=== PATIENT | female | born 1945 | race Caucasian/White ===

== ENCOUNTER 2017-01-07 23:09 | Inpatient (IN) | payer OTHER, MEDICAID ==
[~2017-01-07] VITALS: Ht 165.1 cm; Wt 49.9 kg
[2017-01-07 23:30] VITALS: BP 126/73
[2017-01-07] MEDS ORDERED: Bacitracin Oint UD TOPIC ONE (23:30)
[2017-01-07] MEDS ORDERED: TdaP Vaccine 0.5ml Syr IM ONE (23:30)
[2017-01-07] MEDS ORDERED: ATIVAN0.5 MG ORAL (23:32)
[2017-01-07] MEDS ORDERED: DIOVAN160 MG ORAL (23:32)
[2017-01-07] MEDS ORDERED: EFFEXOR XR75 MG ORAL (23:32)
[2017-01-07] MEDS ORDERED: ATORVASTATIN CA80 MG ORAL (23:32)
[2017-01-07] MEDS ORDERED: MIRTAZAPINE15 MG ORAL (23:32)
[2017-01-08] VITALS (9 sets, daily range): BP systolic 122–181; BP diastolic 51–97
[2017-01-08 00:08] LABS: BASOPHILS % (AUTO) 0.7 % (0.0-2.0); EOSINOPHILS % (AUTO) 2.1 % (0.0-3.0); MEAN CORPUSCULAR HEMOGLOBIN 33.7 PG (27.0-31.0); MEAN CORPUSCULAR HGB CONC 35.5 G/DL (32.0-36.0); MEAN CORPUSCULAR VOLUME 95 FL (80-99); MEAN PLATELET VOLUME 8.5 FL (6.5-10.1); NEUTROPHILS % (AUTO) 50.1 % (45.0-75.0); PLATELET COUNT 190 K/UL (150-450); RED CELL DISTRIBUTION WIDTH 11.5 % (11.6-14.8); WHITE BLOOD COUNT 6.2 K/UL (4.8-10.8)
[2017-01-08 00:24] LABS: ACETAMINOPHEN 23 ug/mL (10-30); ALANINE AMINOTRANSFERASE 27 U/L (3-33); ALBUMIN/GLOBULIN RATIO 2.1 (1.0-2.7); ALCOHOL 12 mg/dL; ANION GAP 19 (5-15); ASPARTATE AMINO TRANSFERASE 30 U/L (5-40); CALCIUM 8.9 mg/dL (8.6-10.2); CARBON DIOXIDE 21 mEQ/L (20-30); CHLORIDE 106 mEQ/L (98-107); CREATININE 0.8 mg/dL (0.5-0.9); HEMOLYSIS 2; POTASSIUM 3.9 mEQ/L (3.4-4.9); SODIUM 146 mEQ/L (135-145); TOTAL PROTEIN 6.2 g/dL (6.6-8.7)
[2017-01-08 00:42] LABS: TROPONIN I < 0.30 ng/mL (<=0.30)
--- NOTE | 2017-01-08 03:54 | Emergency Room Report ---
History of Present Illness General Chief Complaint: Overdose Source: Patient Present Illness HPI Patient suffers from long-standing depression. She is on Effexor at this time. noted she was slurring her words. She had been drinking alcohol but admitted she had taken excessive amounts of Fioricet. She states now that she wants to . She was also drinking alcohol earlier tonight. She was evaluated for after a suicide gesture many years ago. She is frustrated because she feels the medicines are not working. She also cut her left wrist tonight. No significant amount of blood loss or numbness. The states that there is more stress in relationship and she had to return to work recently. No chest pain, NVD, dysuria. No headaches. H/O hypertension and high cholesterol. Allergies: Coded Allergies: PENICILLINS (Verified Allergy, Unknown, 01/07/17) SULFA (SULFONAMIDE ANTIBIOTICS) (Verified Allergy, Unknown, 01/07/17) Patient History Past Medical History: see triage record Social History: Reports: alcohol use, Denies: smoking Social History Narrative Reviewed Nursing Documentation: PMH: Agreed, PSxH: Agreed Nursing Documentation-PMH History Of Psychiatric Problem: Yes - DEPRESSION Review of Systems All Other Systems: negative except mentioned in HPI Physical Exam Vital Signs Date Time Temp Pulse Resp B/P Pulse Ox O2 Delivery O2 Flow Rate FiO2 01/07/17 23:08 98.1 78 16 152/72 96 Room Air Sp02 EP Interpretation: reviewed, normal General Appearance: no apparent distress, GCS 15, lethargic, thin Head: normocephalic Eyes: bilateral eye PERRL, bilateral eye normal inspection ENT: dry mucus membranes Neck: supple Respiratory: lungs clear, normal breath sounds Cardiovascular #1: regular rate, rhythm Cardiovascular #2: 2+ radial (R) Gastrointestinal: normal inspection, normal bowel sounds, non tender, no mass, non-distended Musculoskeletal: back normal, gait/station normal, normal range of motion Neurologic: alert, oriented x3, motor strength/tone normal, DTRs symmetric, sensory intact Psychiatric: depressed affect Suicide Risk Assessment: Suicidal Ideation: Yes Had intent to initiate attempt: Yes Pt's plan for suicide attempt: Yes Has means to complete attempt: Yes Reflexes: 1+ knee (R), 1+ knee (L) Skin: warm/dry, laceration - superficial L volar surface of wrist Medical Decision Making Diagnostic Impression: Primary Impression: Drug overdose Qualified Codes: T50.902A - Poisoning by unspecified drugs, medicaments and biological substances, intentional self-harm, initial encounter Additional Impressions: Suicide gesture Qualified Codes: X83.8XXA - Intentional self-harm by other specified means, initial encounter Major depression Qualified Codes: F33.2 - Major depressive disorder, recurrent severe without psychotic features Superficial L wrist laceration Hypertension Qualified Codes: I10 - Essential (primary) hypertension ER Course The patient presents with suicide gesture. Differential includes exacerbation of major depression, toxic ingestion, electrolyte abnormality, medical causes to make her depression worsened, paroxetine alcohol and antidepressants amongst others. Emergent evaluation is necessary EKG, labs and chest x-ray. The patient has a nonfocal neurologic exam at this time. The laceration on her wrist is needs sutures however she needs a tetanus vaccination. EKG, labs and chest x-ray are unremarkable except for blood alcohol is positive. The patient still states she is still suicidal at this time. She needs acute hospitalization mainly for psychiatric evaluation and also to exclude other medical etiologies for the worsened depression (B12 deficiency, thyroid or other endocrine abnormalities, lupus, etc). The patient is medically stable at this time however needs admission to hospital. We are calling psychiatric evaluation teams at this time. None would come. Dr. Christopher states he can't handle this patient and to admit here. The patient's physician is Dr. Stewart. Admit med with sitter. Discussed with and patient. Laboratory Tests Test 01/07/17 23:48 01/08/17 00:00 White Blood Count 6.2 K/UL (4.8-10.8) Red Blood Count 3.80 M/UL (4.20-5.40) L Hemoglobin 12.8 G/DL (12.0-16.0) Hematocrit 36.1 % (37.0-47.0) L Mean Corpuscular Volume 95 FL (80-99) Mean Corpuscular Hemoglobin 33.7 PG (27.0-31.0) H Mean Corpuscular Hemoglobin Concent 35.5 G/DL (32.0-36.0) Red Cell Distribution Width 11.5 % (11.6-14.8) L Platelet Count 190 K/UL (150-450) Mean Platelet Volume 8.5 FL (6.5-10.1) Neutrophils (%) (Auto) 50.1 % (45.0-75.0) Lymphocytes (%) (Auto) 39.0 % (20.0-45.0) Monocytes (%) (Auto) 8.0 % (1.0-10.0) Eosinophils (%) (Auto) 2.1 % (0.0-3.0) Basophils (%) (Auto) 0.7 % (0.0-2.0) Sodium Level 146 mEQ/L (135-145) H Potassium Level 3.9 mEQ/L (3.4-4.9) Chloride Level 106 mEQ/L (98-107) Carbon Dioxide Level 21 mEQ/L (20-30) Anion Gap 19 (5-15) H Blood Urea Nitrogen 20 mg/dL (7-23) Creatinine 0.8 mg/dL (0.5-0.9) Estimate Glomerular Filtration Rate mL/min (>60) Glucose Level 100 mg/dL (74-106) Calcium Level 8.9 mg/dL (8.6-10.2) Total Bilirubin < 0.2 mg/dL (0.0-1.2) Aspartate Amino Transferase (AST) 30 U/L (5-40) Alanine Aminotransferase (ALT) 27 U/L (3-33) Alkaline Phosphatase 90 U/L (35-104) Total Creatine Kinase 139 U/L (26-140) Troponin I < 0.30 ng/mL (<=0.30) Pro-B-Type Natriuretic Peptide 84 pg/mL (0-125) Total Protein 6.2 g/dL (6.6-8.7) L Albumin 4.2 g/dL (3.5-5.2) Globulin 2.0 g/dL Albumin/Globulin Ratio 2.1 (1.0-2.7) Thyroid Stimulating Hormone (TSH) 3.140 uIU/mL (0.300-4.500) Salicylates Level < 1 mg/dL (10-30) L Acetaminophen Level 23 ug/mL (10-30) Serum Alcohol 12 mg/dL Urine Opiates Screen Negative (NEGATIVE) Urine Barbiturates Screen Positive (NEGATIVE) H Phencyclidine (PCP) Screen Negative (NEGATIVE) Urine Amphetamines Screen Negative (NEGATIVE) Urine Benzodiazepines Screen Negative (NEGATIVE) Urine Cocaine Screen Negative (NEGATIVE) Urine Marijuana (THC) Screen Negative (NEGATIVE) EKG Diagnostic Results Rate: normal Rhythm: NSR ST Segments: no acute changes Rhythm Strip Diag. Results EP Interpretation: yes Rhythm: NSR, no PVC's, no ectopy Chest X-Ray Diagnostic Results EP Interpretation: Yes Findings: no consolidation, no effusion, no pneumothorax, no acute cardiopulmonary disease Number of Views: 1 Last Vital Signs Date Time Temp Pulse Resp B/P Pulse Ox O2 Delivery O2 Flow Rate FiO2 01/08/17 20:19 166/76 01/08/17 16:00 98.1 75 20 97 Room Air Status: improved Disposition: ADMITTED INPATIENT Condition: Serious Referrals: [facility],REFERRING (PCP) Chevy Howe M.D. Jan 08, 2017 03:54
[2017-01-08] MEDS: Irbesartan 150mg tablet ORAL SCH (08:00)
[2017-01-08] MEDS ORDERED: Venlafaxine XR 75mg cap ORAL SCH (09:00)
--- NOTE | 2017-01-08 15:07 | Consultation ---
History of Present Illness General Date patient seen: Jan 08, 2017 Chief Complaint: Overdose Present Illness HPI 71 year old female with hx of long-standing depression presented to [facility] [place] with C Cof slurred speech after taking excessive amounts pills. She states now that she wants to . She's also drinking alcohol earlier tonight. She stated that she wants to . Allergies: Coded Allergies: PENICILLINS (Verified Allergy, Unknown, 01/07/17) SULFA (SULFONAMIDE ANTIBIOTICS) (Verified Allergy, Unknown, 01/07/17) Medication History Scheduled Atorvastatin Calcium* (Lipitor*), 80 MG ORAL BEDTIME, (Reported) Lorazepam* (Ativan*), 0.5 MG ORAL BEDTIME, (Reported) Mirtazapine* (Remeron*), 15 MG ORAL BEDTIME, (Reported) Valsartan (Diovan), 160 MG ORAL DAILY, (Reported) Venlafaxine Hcl* (Effexor Xr*), 75 MG ORAL BEDTIME, (Reported) Patient History Healthcare decision maker Resuscitation status Full Code Advanced Directive on File Past Medical/Surgical History Past Medical/Surgical History: (1) Major depression Review of Systems All Other Systems: negative except mentioned in HPI Physical Exam General Appearance: WD/WN, no apparent distress Lines, tubes and drains: peripheral HEENT: normocephalic, atraumatic Neck: non-tender, normal alignment Respiratory/Chest: chest wall non-tender, lungs clear Cardiovascular/Chest: normal peripheral pulses, normal rate Abdomen: normal bowel sounds, non tender, no organomegaly Genitourinary/Rectal: normal genital exam Extremities: normal range of motion Skin Exam: normal pigmentation Last 24 Hour Vital Signs Date Time Temp Pulse Resp B/P Pulse Ox O2 Delivery O2 Flow Rate FiO2 01/08/17 12:30 98.2 61 20 150/77 95 Room Air 01/08/17 12:10 98.1 71 16 162/88 96 Room Air 01/08/17 10:00 71 16 162/88 96 Room Air 01/08/17 08:00 181/72 01/08/17 08:00 66 16 181/72 100 Room Air 01/08/17 06:26 98.1 66 14 150/73 96 Room Air 01/08/17 04:49 98.1 65 14 124/51 96 Room Air 01/08/17 03:27 98.1 70 16 122/52 96 Room Air 01/08/17 01:25 98.1 67 16 135/61 96 Room Air 01/07/17 23:30 98.1 76 16 126/73 96 Room Air 01/07/17 23:30 78 16 Room Air 01/07/17 23:08 98.1 78 16 152/72 96 Room Air Intake and Output 01/07/17 01/08/17 19:00 07:00 Intake Total 500 ml Balance 500 ml Intake Oral 0 ml IV Total 500 ml # Voids 2 Laboratory Tests Test 01/07/17 23:48 01/08/17 00:00 White Blood Count 6.2 K/UL (4.8-10.8) Red Blood Count 3.80 M/UL (4.20-5.40) L Hemoglobin 12.8 G/DL (12.0-16.0) Hematocrit 36.1 % (37.0-47.0) L Mean Corpuscular Volume 95 FL (80-99) Mean Corpuscular Hemoglobin 33.7 PG (27.0-31.0) H Mean Corpuscular Hemoglobin Concent 35.5 G/DL (32.0-36.0) Red Cell Distribution Width 11.5 % (11.6-14.8) L Platelet Count 190 K/UL (150-450) Mean Platelet Volume 8.5 FL (6.5-10.1) Neutrophils (%) (Auto) 50.1 % (45.0-75.0) Lymphocytes (%) (Auto) 39.0 % (20.0-45.0) Monocytes (%) (Auto) 8.0 % (1.0-10.0) Eosinophils (%) (Auto) 2.1 % (0.0-3.0) Basophils (%) (Auto) 0.7 % (0.0-2.0) Sodium Level 146 mEQ/L (135-145) H Potassium Level 3.9 mEQ/L (3.4-4.9) Chloride Level 106 mEQ/L (98-107) Carbon Dioxide Level 21 mEQ/L (20-30) Anion Gap 19 (5-15) H Blood Urea Nitrogen 20 mg/dL (7-23) Creatinine 0.8 mg/dL (0.5-0.9) Estimat Glomerular Filtration Rate mL/min (>60) Glucose Level 100 mg/dL (74-106) Calcium Level 8.9 mg/dL (8.6-10.2) Total Bilirubin < 0.2 mg/dL (0.0-1.2) Aspartate Amino Transf (AST/SGOT) 30 U/L (5-40) Alanine Aminotransferase (ALT/SGPT) 27 U/L (3-33) Alkaline Phosphatase 90 U/L (35-104) Total Creatine Kinase 139 U/L (26-140) Troponin I < 0.30 ng/mL (<=0.30) Pro-B-Type Natriuretic Peptide 84 pg/mL (0-125) Total Protein 6.2 g/dL (6.6-8.7) L Albumin 4.2 g/dL (3.5-5.2) Globulin 2.0 g/dL Albumin/Globulin Ratio 2.1 (1.0-2.7) Thyroid Stimulating Hormone (TSH) 3.140 uIU/mL (0.300-4.500) Salicylates Level < 1 mg/dL (10-30) L Acetaminophen Level 23 ug/mL (10-30) Serum Alcohol 12 mg/dL Urine Opiates Screen Negative (NEGATIVE) Urine Barbiturates Screen Positive (NEGATIVE) H Phencyclidine (PCP) Screen Negative (NEGATIVE) Urine Amphetamines Screen Negative (NEGATIVE) Urine Benzodiazepines Screen Negative (NEGATIVE) Urine Cocaine Screen Negative (NEGATIVE) Urine Marijuana (THC) Screen Negative (NEGATIVE) Height (Feet): 5 Height (Inches): 5.00 Weight (Pounds): 110 Medications Current Medications Medications (Trade) Dose Ordered Sig/Payal Route PRN Reason Start Time Stop Time Status Last Admin Dose Admin Atorvastatin Calcium (Lipitor) 80 mg BEDTIME ORAL 01/08/17 21:00 02/07/17 20:59 Irbesartan (Avapro) 150 mg DAILY ORAL 01/08/17 09:00 02/07/17 08:59 01/08/17 08:00 Lorazepam (Ativan) 0.5 mg QHS PRN ORAL For Anxiety 01/08/17 21:00 01/15/17 20:59 Mirtazapine (Remeron) 15 mg BEDTIME ORAL 01/08/17 21:00 02/07/17 20:59 Venlafaxine HCl (Effexor-XR) 75 mg DAILY ORAL 01/08/17 09:00 02/07/17 08:59 01/08/17 09:39 Assessment/Plan Problem List: (1) Drug overdose ICD Codes: T50.901A - Poisoning by unspecified drugs, medicaments and biological substances, accidental (unintentional), initial encounter SNOMED: 94701900 (2) Suicide ideation ICD Codes: R45.851 - Suicidal ideations SNOMED: 9027377, 589217218 (3) Major depression ICD Codes: F32.9 - Major depressive disorder, single episode, unspecified SNOMED: 819844935 Assessment/Plan psych evaluation symptomatic treatment dvt prophylaxis antidepressant might need to go to a psych RENAE COURTNEY Jan 08, 2017 15:07
[2017-01-08] MEDS ORDERED: LORazepam 0.5mg tab ORAL PRN (20:00)
[2017-01-08] MEDS ORDERED: Atorvastatin 80mg tab ORAL SCH (21:00)
--- NOTE | 2017-01-08 22:58 | Consultation ---
History of Present Illness General Date patient seen: Jan 08, 2017 Chief Complaint: Overdose Present Illness HPI 71 year old female with hx of depression and anxiety presented to [facility] [place] with slurred speech anatoly excessive amounts pills which she mixed with alcohol.target sxs depressed mood, low energy, anhedonia, suicidal ideation and anxiety. no manic or psychotic sxs. the pt also endorsees chronic feeling of loneliness. the pt was seen and evaluated in er. Allergies: Coded Allergies: PENICILLINS (Verified Allergy, Unknown, 01/07/17) SULFA (SULFONAMIDE ANTIBIOTICS) (Verified Allergy, Unknown, 01/07/17) Medication History Scheduled Atorvastatin Calcium* (Lipitor*), 80 MG ORAL BEDTIME, (Reported) Lorazepam* (Ativan*), 0.5 MG ORAL BEDTIME, (Reported) Mirtazapine* (Remeron*), 15 MG ORAL BEDTIME, (Reported) Valsartan (Diovan), 160 MG ORAL DAILY, (Reported) Venlafaxine Hcl* (Effexor Xr*), 75 MG ORAL BEDTIME, (Reported) Patient History History Provided By: Patient, Medical Record, PMD Healthcare decision maker Resuscitation status Full Code Advanced Directive on File Past Medical/Surgical History Past Medical/Surgical History: (1) Suicide gesture (2) Major depression (3) Drug overdose (4) Suicide ideation Review of Systems Constitutional: Reports: weakness Psychiatric: Reports: SI, anxiety, depressed feelings, emotional problems, prior hx Physical Exam General Appearance: alert, moderate distress, thin Neurologic: alert, oriented x 3, responsive, depressed affect Last 24 Hour Vital Signs Date Time Temp Pulse Resp B/P Pulse Ox O2 Delivery O2 Flow Rate FiO2 01/08/17 20:19 166/76 01/08/17 16:00 98.1 75 20 153/97 97 Room Air 01/08/17 12:30 98.2 61 20 150/77 95 Room Air 01/08/17 12:10 98.1 71 16 162/88 96 Room Air 01/08/17 10:00 71 16 162/88 96 Room Air 01/08/17 08:00 181/72 01/08/17 08:00 66 16 181/72 100 Room Air 01/08/17 06:26 98.1 66 14 150/73 96 Room Air 01/08/17 04:49 98.1 65 14 124/51 96 Room Air 01/08/17 03:27 98.1 70 16 122/52 96 Room Air 01/08/17 01:25 98.1 67 16 135/61 96 Room Air 01/07/17 23:30 98.1 76 16 126/73 96 Room Air 01/07/17 23:30 78 16 Room Air 01/07/17 23:08 98.1 78 16 152/72 96 Room Air Intake and Output 01/07/17 01/08/17 19:00 07:00 Intake Total 500 ml Balance 500 ml Intake Oral 0 ml IV Total 500 ml # Voids 2 Laboratory Tests Test 01/07/17 23:48 01/08/17 00:00 White Blood Count 6.2 K/UL (4.8-10.8) Red Blood Count 3.80 M/UL (4.20-5.40) L Hemoglobin 12.8 G/DL (12.0-16.0) Hematocrit 36.1 % (37.0-47.0) L Mean Corpuscular Volume 95 FL (80-99) Mean Corpuscular Hemoglobin 33.7 PG (27.0-31.0) H Mean Corpuscular Hemoglobin Concent 35.5 G/DL (32.0-36.0) Red Cell Distribution Width 11.5 % (11.6-14.8) L Platelet Count 190 K/UL (150-450) Mean Platelet Volume 8.5 FL (6.5-10.1) Neutrophils (%) (Auto) 50.1 % (45.0-75.0) Lymphocytes (%) (Auto) 39.0 % (20.0-45.0) Monocytes (%) (Auto) 8.0 % (1.0-10.0) Eosinophils (%) (Auto) 2.1 % (0.0-3.0) Basophils (%) (Auto) 0.7 % (0.0-2.0) Sodium Level 146 mEQ/L (135-145) H Potassium Level 3.9 mEQ/L (3.4-4.9) Chloride Level 106 mEQ/L (98-107) Carbon Dioxide Level 21 mEQ/L (20-30) Anion Gap 19 (5-15) H Blood Urea Nitrogen 20 mg/dL (7-23) Creatinine 0.8 mg/dL (0.5-0.9) Estimat Glomerular Filtration Rate mL/min (>60) Glucose Level 100 mg/dL (74-106) Calcium Level 8.9 mg/dL (8.6-10.2) Total Bilirubin < 0.2 mg/dL (0.0-1.2) Aspartate Amino Transf (AST/SGOT) 30 U/L (5-40) Alanine Aminotransferase (ALT/SGPT) 27 U/L (3-33) Alkaline Phosphatase 90 U/L (35-104) Total Creatine Kinase 139 U/L (26-140) Troponin I < 0.30 ng/mL (<=0.30) Pro-B-Type Natriuretic Peptide 84 pg/mL (0-125) Total Protein 6.2 g/dL (6.6-8.7) L Albumin 4.2 g/dL (3.5-5.2) Globulin 2.0 g/dL Albumin/Globulin Ratio 2.1 (1.0-2.7) Thyroid Stimulating Hormone (TSH) 3.140 uIU/mL (0.300-4.500) Salicylates Level < 1 mg/dL (10-30) L Acetaminophen Level 23 ug/mL (10-30) Serum Alcohol 12 mg/dL Urine Opiates Screen Negative (NEGATIVE) Urine Barbiturates Screen Positive (NEGATIVE) H Phencyclidine (PCP) Screen Negative (NEGATIVE) Urine Amphetamines Screen Negative (NEGATIVE) Urine Benzodiazepines Screen Negative (NEGATIVE) Urine Cocaine Screen Negative (NEGATIVE) Urine Marijuana (THC) Screen Negative (NEGATIVE) Height (Feet): 5 Height (Inches): 5.00 Weight (Pounds): 110 Medications Current Medications Medications (Trade) Dose Ordered Sig/Payal Route PRN Reason Start Time Stop Time Status Last Admin Dose Admin Atorvastatin Calcium (Lipitor) 80 mg BEDTIME ORAL 01/08/17 21:00 02/07/17 20:59 01/08/17 20:18 Clonidine HCl (Catapres) 0.1 mg Q4H PRN ORAL For High Blood Pressure 01/08/17 20:15 02/07/17 20:14 01/08/17 20:19 Irbesartan (Avapro) 150 mg DAILY ORAL 01/08/17 09:00 02/07/17 08:59 01/08/17 08:00 Lorazepam (Ativan) 0.5 mg HSPRN PRN ORAL For Anxiety 01/08/17 20:00 01/15/17 19:59 01/08/17 20:18 Mirtazapine (Remeron) 15 mg BEDTIME ORAL 01/08/17 21:00 02/07/17 20:59 01/08/17 20:18 Venlafaxine HCl (Effexor-XR) 75 mg DAILY ORAL 01/08/17 09:00 02/07/17 08:59 01/08/17 09:39 Assessment/Plan Status: not improved Assessment/Plan MDD recurrent severe the pt is s/p sa. The pt is still at imminent dts dc effex dc remeron seroquel 25mg cymbalta 30mg 5150 psych inpatient. Tyler Burton M.D. Jan 08, 2017 22:58
[2017-01-09] VITALS: BP 142/73
[2017-01-09 04:00] VITALS: BP 147/69
[2017-01-09] MEDS ORDERED: Norco 10mg/325mg tab ORAL PRN (06:45)
--- NOTE | 2017-01-09 07:26 | Cardiology Report ---
APPROVED REPORT EKG Measurement Heart [id number] Normal sinus rhythm with sinus arrhythmia Nonspecific ST abnormality Abnormal ECG
[2017-01-09 07:31] VITALS: BP 149/72
[2017-01-09] MEDS: Irbesartan 150mg tablet ORAL SCH (08:11)
[2017-01-09] MEDS ORDERED: DULoxetine 30mg cap ORAL SCH (09:00)
[2017-01-09 11:39] VITALS: BP 128/64
[2017-01-09] MEDS ORDERED: LORazepam 1mg tab ORAL PRN (15:20)
--- NOTE | 2017-01-09 15:43 | Pulmonology Progress Note ---
Assessment/Plan Problems: (1) Drug overdose (2) Suicide ideation (3) Major depression Assessment/Plan psych evaluation appreciated awaiting PET team symptomatic treatment Subjective ROS Limited/Unobtainable: No Constitutional: Reports: no symptoms Respiratory: Reports: no symptoms Allergies: Coded Allergies: PENICILLINS (Verified Allergy, Unknown, 01/07/17) SULFA (SULFONAMIDE ANTIBIOTICS) (Verified Allergy, Unknown, 01/07/17) Objective Last 24 Hour Vital Signs Date Time Temp Pulse Resp B/P Pulse Ox O2 Delivery O2 Flow Rate FiO2 01/09/17 11:39 97.6 76 20 128/64 96 Room Air 01/09/17 08:11 149/72 01/09/17 07:31 97.1 92 20 149/72 98 Room Air 01/09/17 04:00 97.9 79 19 147/69 93 Room Air 01/09/17 00:00 98.2 81 18 142/73 94 Room Air 01/08/17 20:19 166/76 01/08/17 20:00 98.2 80 19 166/76 94 Room Air 01/08/17 16:00 98.1 75 20 153/97 97 Room Air Intake and Output 01/08/17 01/09/17 19:00 07:00 Intake Total 350 ml Balance 350 ml Intake Oral 350 ml # Voids 3 General Appearance: WD/WN HEENT: normocephalic, atraumatic Respiratory/Chest: chest wall non-tender, lungs clear Breasts: no masses Cardiovascular: normal peripheral pulses, normal rate Abdomen: normal bowel sounds, soft, non tender Genitourinary: normal external genitalia Extremities: no cyanosis Skin: no rash Neurologic/Psychiatric: design leader II-XII grossly normal Current Medications Medications (Trade) Dose Ordered Sig/Payal Route PRN Reason Start Time Stop Time Status Last Admin Dose Admin Acetaminophen/ Hydrocodone Bitart ([place] 10/325) 1 ea Q4H PRN ORAL For Pain 01/09/17 06:45 01/16/17 06:44 01/09/17 06:52 Atorvastatin Calcium (Lipitor) 80 mg BEDTIME ORAL 01/08/17 21:00 02/07/17 20:59 01/08/17 20:18 Clonidine HCl (Catapres) 0.1 mg Q4H PRN ORAL For High Blood Pressure 01/08/17 20:15 02/07/17 20:14 01/08/17 20:19 Duloxetine HCl (Cymbalta) 30 mg DAILY ORAL 01/09/17 09:00 02/08/17 08:59 01/09/17 08:12 Irbesartan (Avapro) 150 mg DAILY ORAL 01/08/17 09:00 02/07/17 08:59 01/09/17 08:11 Lorazepam (Ativan) 1 mg Q6H PRN ORAL For Anxiety 01/09/17 15:20 01/16/17 15:19 Quetiapine Fumarate (SEROquel) 25 mg BEDTIME ORAL 01/09/17 21:00 02/08/17 20:59 RENAE COURTNEY Jan 09, 2017 15:43
[2017-01-09 16:14] VITALS: BP 126/71
--- NOTE | 2017-01-09 17:20 | History & Physical ---
History and Physical History & Physicial Dictated for Int Med-Dr Stewart no. [id number]. LENA SAENZ Jan 09, 2017 17:20
--- NOTE | 2017-01-09 21:30 | Progress Note ---
DATE: 01/09/2017 PINSUBJECTIVE: The patient was seen. She continues to be anxious, agitated and illogical. She now wants to "go back to work." Her current psychosocial stressors are not changed. The patient insisted that she wants to kill herself and yesterday today she is denying. She had a red lipstick on eyes. I spoke with her contacted me. He was himself very anxious and would ruminate in regards to the patient's condition and where to follow up after discharge as well as financial stressors. The patient is refusing to go to a psychiatric thakkar or hospital. Her expressed that the patient threw up two times this morning per staff the patient has not vomited. MENTAL STATUS EXAMINATION: The patient is alert and oriented x3. Mood is anxious. Affect is constricted. Congruent mood. Thought process is concrete. Thought content, no suicidal or homicidal ideations. ASSESSMENT: Major depressive disorder. PLAN: 1. The patient will continue Cymbalta and continue Seroquel. 2. A 51 50 hold and recommend transfer to psychiatric floor as the patient is still an imminent danger to self or others and outside of the hospital. The patient does not have a good and/or secure plan. Her psychiatrist is not going to follow up the patient and the patient has financial stressors, also conflict with the . Tyler Burton M.D. DR: USMAN JOB#: [id number] CC:
--- NOTE | 2017-01-09 22:30 | History and Physical Report ---
DATE OF ADMISSION: 01/08/2017 CHIEF COMPLAINT: The patient is a 71-year-old white female, who presents with chief complaint of intentional overdose. HISTORY OF PRESENT ILLNESS: The patient has a history of major depression. The patient has never been hospitalized for depression. The patient states that on Sunday she borrowed some Fioricet from a friend. The patient took 8 to 10 Fioricet tablets as a suicide gesture. The patient was noticed to have slurred speech per . The patient was transported emergently to [facility]. The patient was admitted for intentional overdose and suicide gesture. PAST MEDICAL HISTORY: Significant for, 1. Hypertension. 2. Major depression. 3. Hypercholesterolemia. 4. History of pancreatitis. PAST SURGICAL HISTORY: Significant for total abdominal hysterectomy. CURRENT MEDICATIONS: 1. Lipitor 80 mg one tablet p.o. q.h.s. 2. Ativan 0.5 mg one tablet p.o. q.h.s. 3. Remeron 15 mg one tablet p.o. q.h.s. 4. Diovan 160 mg one tablet p.o. daily. 5. Effexor 75 mg one tablet p.o. daily. ALLERGIES: Penicillin and sulfa. SOCIAL HISTORY: The patient is . The patient did not go back to work recently. The patient admits to tobacco use one-half pack per day. The patient denies alcohol use. REVIEW OF SYSTEMS: Constitutional: The patient denies weight loss or weight gain. The patient denies fevers or chills. HEENT: The patient denies ear or throat pain. The patient denies headache. Cardiovascular: The patient denies palpitations or chest pain. Chest: The patient denies wheeze or shortness of breath. Abdominal: The patient denies nausea, vomiting, diarrhea, or constipation. Genitourinary: The patient denies dysuria or increased frequency of urination. Neuromuscular: The patient denies seizures or generalized weakness. PHYSICAL EXAMINATION: VITAL SIGNS: Temperature 98.2 degrees, respirations 18, pulse 81, and blood pressure 142/73. GENERAL: The patient is a well-developed, well-nourished, thin-appearing white female, in no apparent distress. HEENT: Eyes, pupils are equal and responsive to light and accommodation. Extraocular movements are intact. NECK: Supple without lymphadenopathy. CHEST: Lungs are clear to auscultation bilaterally. CARDIOVASCULAR: Regular rhythm and rate. S1 and S2 are normal without murmurs, rubs, or gallops. ABDOMEN: Soft, nontender, and nondistended. Positive bowel sounds. No evidence of hepatosplenomegaly. Currently, no rebound or guarding. EXTREMITIES: Negative for clubbing, cyanosis, or edema. RECTAL: Refused. GENITAL: Refused. NEUROLOGIC: Cranial nerves II through XII were grossly intact without focal deficits. Motor strength is 5/5 bilaterally. Deep tendon reflexes are 2+ plantar. LABORATORY STUDIES: WBC 6.2, hemoglobin 12.8, hematocrit 36.1, and platelets 190,000. Sodium 146, potassium 3.9, chloride 106, CO2 21, BUN 20, creatinine 0.8, and glucose 100. Troponin is less than 0.3. Urine toxicology was positive for barbiturates. ASSESSMENT: This is a 71-year-old white female. 1. Suicide gesture. 2. Major depression. 3. Hypertension. 4. Hypercholesterolemia. 5. History of pancreatitis. TREATMENT: 1. Suicide gesture/major depression. A Psychiatric consultation was obtained with Dr. Burton. The patient may require a 51 50 hold. A PET team evaluation is pending. 2. Hypertension. Continue valsartan as above. 3. Hypercholesterolemia. Continue Lipitor as above. 4. History of pancreatitis. Aroldo Alegria M.D. DR: SAMUEL JOB#: [id number] CC:
--- NOTE | 2017-01-10 19:30 | Discharge Summary ---
Discharge Summary Hospital Course Date of Admission Jan 08, 2017 at 05:48 Date of Discharge Jan 09, 2017 at 21:00 Admitting Diagnosis Suicidal, Overdose HPI Jenny Han is a 71 year old female who was admitted on Jan 08, 2017 at 05:48 for Suicidal,Overdose Hospital Course [id number] Discharge Discharge Disposition Patient was discharged to Psychiatric Facility ([id number]) Discharge Diagnoses: Marilou Garvin NP Jan 10, 2017 19:30
--- NOTE | 2017-01-11 03:01 | Discharge Summary 2 SIG ---
DATE OF ADMISSION: 01/08/2017 DATE OF DISCHARGE: 01/09/2017 CONSULTANTS: 1. Rica Haji M.D. 2. Tyler Burton M.D. BRIEF HOSPITAL COURSE: The patient is a 71-year-old female with history of major depression and has never been hospitalized for depression, borrowed Fioricet from a friend and took 8 to 10 tablets as a suicide gesture. The patient was noted to have slurred speech and was transported to [facility]. She was admitted for intentional overdose and suicide. She was seen by Dr. Burton for psychiatric evaluation. Urine toxicology was negative. The patient was placed on 5150 and PET evaluation was done. The patient is on imminent danger to self and others outside of hospital. The patient was eventually discharged to psychiatric hospital, was continued on Lipitor, Remeron, Diovan, and Effexor. FINAL DIAGNOSES: 1. Suicide attempt. 2. Major depressive disorder. 3. Hypertension. 4. Hypercholesterolemia. 5. Drug over dose. Aroldo Alegria M.D. I have been assigned to dictate discharge summary on this account and I was not involved in the patient's management. Marilou Garvin N.P. DR: CRYSTAL JOB#: [id number] CC: CARMEN
== END 2017-01-09 21:00 | DRG 918 ==
LOC: EDBD 23:09 → EMR 23:32 → 3E 01-08 05:48 → EDBEDREQ 01-08 06:34
DX: T50.992A Poisoning by other drugs, medicaments and biological substances, intentional self-harm, initial encounter (principal); F33.9 Major depressive disorder, recurrent, unspecified; I10 Essential (primary) hypertension; Y92.009 Unspecified place in unspecified non-institutional (private) residence as the place of occurrence of the external cause; E78.00 Pure hypercholesterolemia, unspecified; F17.200 Nicotine dependence, unspecified, uncomplicated; Z88.0 Allergy status to penicillin; Z88.2 Allergy status to sulfonamides; T14.91 Suicide attempt; S61.512A Laceration without foreign body of left wrist, initial encounter; X83.8XXA Intentional self-harm by other specified means, initial encounter; Z23 Encounter for immunization
CPT/HCPCS: 36415; 80053; 80300; 80329; 82550; 83880; 84443; 84484; 85025; 90471; 90715; 93005